=== PATIENT | female | born 1990 | race Caucasian/White ===

== ENCOUNTER 2018-05-06 11:12 | Emergency (ER) | payer BC, OTHER ==
[2018-05-06 11:58] VITALS: BP 108/64
--- NOTE | 2018-05-06 12:32 | UC ---
Abdominal Pain Female HPI - HPI Summary HPI Summary: lower abdominal pain x 1 day gas pain last night , took gasX / ibuprofen with some improvement pain was 7 out of 10 sharp / radiating to her rectum , feeling better today no n/v/d/c , no urinary sx - History of Current Complaint Chief Complaint: UCAbdominalPain Stated Complaint: GAS PAINS Time Seen by Provider: 05/06/18 12:15 Hx Obtained From: Patient Hx Last Menstrual Period: 04/01/18 Onset/Duration: Gradual Onset, Lasting Days - 1, Still Present Timing: Constant Severity Initially: Severe Severity Currently: Mild Pain Intensity: 1 Location: Suprapubic Radiates: Yes Radiates to: Other - rectum area Character: Cramping, Sharp Alleviating Factor(s): Medications - ibuprofen Associated Signs and Symptoms: Negative: Fever, Cough, Chest Pain, Dizzy, Back Pain, Constipation, Blood in Stool, Urinary Symptoms, Decreased Appetite, Vaginal Bleeding, Vaginal Discharge, Nausea, Vomiting, Diarrhea Allergies/Adverse Reactions: Allergies Allergy/AdvReac Type Severity Reaction Status Date / Time No Known Allergies Allergy Verified 05/06/18 11:50 Home Medications: Home Medications Ibuprofen TAB* [Advil TAB*] 200 mg PO Q6H PRN 05/06/18 [History Confirmed ] Simethicone [Gas-X Extra Strength] 125 mg PO WEEKLY PRN 05/06/18 [History Confirmed 05/06/18] busPIRone TAB* [Buspar TAB*] 5 mg PO ONCE PRN 05/06/18 [History Confirmed ] PMH/Surg Hx/FS Hx/Imm Hx Previously Healthy: Yes - Surgical History Surgical History: Yes Surgery Procedure, Year, and Place: fibroadenoma removed - Family History Known Family History: Negative: Cardiac Disease, Hypertension - Social History Alcohol Use: Occasionally Substance Use Type: None Smoking Status (MU): Never Smoked Tobacco Review of Systems All Other Systems Reviewed And Are Negative: Yes Constitutional: Positive: Negative Skin: Positive: Negative Eyes: Positive: Negative ENT: Positive: Negative Respiratory: Positive: Negative Gastrointestinal: Positive: Abdominal Pain Genitourinary: Positive: Negative Is Patient Immunocompromised?: No Physical Exam Triage Information Reviewed: Yes Appearance: Well-Appearing, No Pain Distress, Well-Nourished Vital Signs: Initial Vital Signs Temp 98.3 F 05/06/18 11:52 Pulse 101 05/06/18 11:52 Resp 15 05/06/18 11:52 BP 108/64 05/06/18 11:52 Pulse Ox 100 05/06/18 11:52 Vital Signs Reviewed: Yes Eye Exam: Normal Eyes: Positive: Conjunctiva Clear ENT: Positive: Normal ENT inspection, Hearing grossly normal, Pharynx normal Neck: Positive: Supple, Nontender, No Lymphadenopathy Respiratory: Positive: Chest non-tender, Lungs clear, Normal breath sounds Cardiovascular: Positive: RRR, No Murmur, Pulses Normal Abdomen Description: Positive: Soft, Other: - tenderness suprapubic area. Negative: CVA Tenderness (R), CVA Tenderness (L), Distended, Guarding Musculoskeletal Exam: Normal Abd Pain Female Course/Dx - Differential Dx/Diagnosis Provider Diagnosis: Abdominal pain, suprapubic Discharge - Sign-Out/Discharge Documenting (check all that apply): Patient Departure All imaging exams completed and their final reports reviewed: No Studies - Discharge Plan Condition: Stable Disposition: HOME Patient Education Materials: Pelvic Pain in Women (ED) Referrals: Yvonne Verduzco MD [Primary Care Provider] - 3 Days Additional Instructions: cont. to monitor your symptoms , take Ibuprofen 600 mg as needed every 6 hrs follow up if getting worse with increase abdominal / pelvic pain may need an Ultrasound / Ct if getting worse - Billing Disposition and Condition Condition: STABLE Disposition: Home
== END 2018-05-06 12:30 | disposition home or self-care (01) ==
LOC: UCCORT 11:12
DX: R10.30 Lower abdominal pain, unspecified (principal); M79.10 Myalgia, unspecified site
CPT/HCPCS: 81003; 84702; 99211; G0463